=== PATIENT | female | born 1980 | race Native Hawaiian/Other Pacific Islander ===

== ENCOUNTER 2017-07-26 13:53 | Emergency (ER) | payer OTHER ==
[2017-07-26 14:35] VITALS: BMI 30.2
[2017-07-26] MEDS ORDERED: Lactated Ringer's 1,000 ML IV ONE (15:07)
[2017-07-26 15:19] LABS: URINE BILIRUBIN NEGATIVE (NEGATIVE); URINE BLOOD NEGATIVE (NEGATIVE); URINE CLARITY Clear (Clear); URINE COLOR YELLOW (YELLOW); URINE GLUCOSE (UA) NEGATIVE (Normal); URINE LEUKOCYTE ESTERASE NEGATIVE Leu/uL (Negative); URINE NITRATE NEGATIVE (NEGATIVE); URINE PROTEIN NEGATIVE (NEGATIVE); URINE UROBILINOGEN 0.2 mg/dL (0.2-1.0)
[2017-07-26 15:46] LABS: BASO # 0.1 K/uL (0.0-0.2); BASO % 0.6 % (0.0-2.0); EOS # 0.1 K/uL (0.0-0.7); EOS % 0.8 % (0.0-4.0); LYMPH # 1.7 K/uL (1.0-4.3); MEAN CORPUSCULAR HGB CONC 34.9 g/dL (33.0-37.0); MEAN PLATELET VOLUME 9.6 fL (7.2-11.7); MONO # 0.6 K/uL (0.0-0.8); MONO % 5.1 % (0.0-10.0); NEUT # 9.4 K/uL (1.8-7.0); NEUT % 79.5 % (50.0-75.0); RBC 3.81 Mil/uL (3.80-5.20); RED CELL DISTRIBUTION WIDTH 15.1 % (11.5-14.5); WHITE BLOOD COUNT 11.8 K/uL (4.8-10.8)
--- NOTE | 2017-07-26 16:12 | US ---
PROCEDURE: Ultrasound of the Kidneys HISTORY: r/o renal calculus, 24 weeks . COMPARISON: None available. TECHNIQUE: Sonogram of the kidneys. FINDINGS: RIGHT KIDNEY: Measures: 12.0 x 4.6 x 5.8 cm. Mild fullness of the renal collecting system. No obstructing calculus identified. LEFT KIDNEY: Measures: 11.2 x 4.8 x 5.3 cm. Mild fullness of the renal collecting system. No obstructing calculus identified. OTHER FINDINGS: Distended urinary bladder, otherwise grossly unremarkable. IMPRESSION: Mild fullness of bilateral renal collecting systems. No obstructing calculus identified.
[2017-07-26 16:14] LABS: ALB/GLOB RATIO 1.1 (1.0-2.1); ALBUMIN 3.5 g/dL (3.5-5.0); ALT/SGPT 23 U/L (9-52); AST/SGOT 25 U/L (14-36); BLOOD UREA NITROGEN 5 mg/dL (7-17); CALCIUM 9.2 mg/dl (8.6-10.4); GFR AFRICAN-AMERICAN > 60; GFR NON-AFRICAN AMERICAN > 60
[2017-07-26 21:07] VITALS: BP 132/87; PULSE 97; RESP 18; TEMP 97; O2SAT 97
--- NOTE | 2017-07-27 02:23 | OBHP ---
Datetime: 07/26/2017 16:55 IP Adm Impression: , intrauterine IP Chief Complaint Other: right and left flank pain IP Admit Plan: Discharge home Admit Comment, IP Provider: 37 y.o. , LMP 02/04/17, ALFREDO 11/12/17, EGA 24w 3d c/o LAP, pain scale 8/10 to 10/10, onset 1230 hours, while sitting at work. Intermittent; no particular timing. Feels lik e a stabbing pain. Not felt fetus moving as much this morning. (+) urinary frequency; denies dysuria . care: Dr. 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 H/O fibroid, 03/2017. Denies STIs PMH: denies PSH: 2007, cyst removed left ankle; benign NKDA Meds: PNV Soc Hx: denies tobacco, illicit drug or EtOH use. x 2 years. Works as business intelligence etl developer. Fam Hx: Mother alive 63 y.o. - DM. Father when patient 8 y.o. "accident" P.E.: as above. Mildly obese, flinches intermittently. awake, alert, oriented to time, person and place. Accompanied by Assessment: 37 y.o. P0, 24w 3d, colicky pain, aetiology unclear - R/O renal calculus. FHR detected and wnl for gestational age. Clinically stable. Plan: 1) U/A 2) CBC 3) Renal ultrasound 4) IVFs 5) Tylenol 975 mg p.o. x 1 dose 6) observe Addendum: - renal ultrasound: mildy dilated renal collecting system bilaterally; no obstsructing calculi, bi laterally - U/A negative Patient feels better, pain sacle now 10/02 Assessment: Musculoskeletal pain. Clinically stable. Plan: 1) Discharge home 2) Reviewed S/S PTL 3) Call Dr Marrufo for appointment Pelvic Type - PN: Adequate Extremities - PN: Normal Abdomen - PN: Normal Back - PN: Normal Breast - PN: Not Done Lungs - PN: Normal Heart - PN: Normal Thyroid - PN: Not Done Neurologic - PN: Normal HEENT - PN: Normal General - PN: Normal Presentation-Admit: Vertex FHR - Baseline A Provider: 140 Contraction Comments Provider: none Comments, ACOG Physical Exam: Back: no CVA tenderness Abdomen: Obese. Gravid. soft. Non tender in all quadrants. No suprapubic tenderness. (+) left flan k tenderness All other systems reviewed and are negative Gestation - Est Wks by US: 24w 3d EGA AdmitDate IP: 24.3 Vital Signs Provider: Reviewed; Within Normal Limits IP Chief Complaint: Other NICHD Accel Fetus A IP Provider: 15X15 FHR Category Provider Fetus A: Category I NICHD Decel Fetus A IP Provider: None Dilatation, Provider: 0 Effacement, Provider: 30 Station, Provider: high Genitourinary Exam: Normal DTRs - PN: Not Done
== END 2017-07-26 17:06 | disposition home or self-care (01) ==
LOC: C.EROB 13:53
DX: O26.892 Other specified pregnancy related conditions, second trimester (principal); R10.84 Generalized abdominal pain; Z3A.24 24 weeks gestation of pregnancy
CPT/HCPCS: 76770; 80053; 81001; 85025; 99283; J7120

== ENCOUNTER 2017-10-30 10:32 | Emergency (ER) | payer OTHER ==
[2017-10-30 10:32] VITALS: BMI 30.2
[2017-10-30 11:39] LABS: BASO # 0.1 K/uL (0.0-0.2); BASO % 0.8 % (0.0-2.0); EOS # 0.1 K/uL (0.0-0.7); EOS % 0.7 % (0.0-4.0); HEMOGLOBIN 11.2 g/dL (11.0-16.0); LYMPH % 17.7 % (20.0-40.0); MEAN CELL VOLUME 76.6 fL (81.0-99.0); MEAN CORPUSCULAR HEMOGLOBIN 26.3 pg (27.0-31.0); MEAN CORPUSCULAR HGB CONC 34.3 g/dL (33.0-37.0); MEAN PLATELET VOLUME 10.7 fL (7.2-11.7); MONO # 0.8 K/uL (0.0-0.8); MONO % 6.8 % (0.0-10.0); NEUT # 8.3 K/uL (1.8-7.0); NRBC % 0.1 % (0.0-2.0); RBC 4.28 Mil/uL (3.80-5.20); RED CELL DISTRIBUTION WIDTH 16.4 % (11.5-14.5); WHITE BLOOD COUNT 11.2 K/uL (4.8-10.8)
[2017-10-30 11:53] LABS: SQUAMOUS EPITHIAL < 1 /hpf (0-5); URINE BILIRUBIN NEGATIVE (NEGATIVE); URINE CLARITY Clear (Clear); URINE COLOR Straw (YELLOW); URINE GLUCOSE (UA) NORMAL (Normal); URINE LEUKOCYTE ESTERASE NEG Leu/uL (Negative); URINE PROTEIN NEGATIVE (NEGATIVE); URINE UROBILINOGEN NORMAL mg/dL (0.2-1.0)
[2017-10-30 11:55] LABS: ALBUMIN 3.7 g/dL (3.5-5.0); ALT/SGPT 16 U/L (9-52); AST/SGOT 26 U/L (14-36); BLOOD UREA NITROGEN 6 mg/dL (7-17); GFR AFRICAN-AMERICAN > 60; GFR NON-AFRICAN AMERICAN > 60; URINE BLOOD NEGATIVE (NEGATIVE)
--- NOTE | 2017-10-30 12:12 | OBHP ---
Datetime: 10/30/2017 12:01 IP Adm Impression: Term, intrauterine IP Admit Plan: Observation/Evaluation Admit Comment, IP Provider: 37 y.o. , LMP 02/04/17, ALFREDO 11/12/17 by lmp _ 6wk u presents to [facility] for eval of elev bp 130-135/98-100 noted in office visit today. care: Dr. Marrufo; no issues to date she denies VA disturbance, abd pain, n/v. 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 H/O fibroid, 03/2017. Denies STIs PMH: denies PSH: 2007, cyst removed left ankle; benign NKDA Meds: PNV Soc Hx: denies tobacco, illicit drug or EtOH use. x 2 years. I: 38.1wk Elev BP in ofcfice p: fms pih labs FHR - Baseline A Provider: 130-140 EGA AdmitDate IP: 38.1 Vital Signs Provider: Reviewed IP Chief Complaint: Signs/Symptoms Gestational HTN NICHD Variability Prov Fetus A: Moderate 6-25bpm NICHD Accel Fetus A IP Provider: 15X15 FHR Category Provider Fetus A: Category I NICHD Decel Fetus A IP Provider: None
[2017-10-30 17:29] VITALS: BP 108/69; PULSE 75; RESP 20; TEMP 97.5
== END 2017-10-30 12:35 | disposition home or self-care (01) ==
LOC: C.EROB 10:32
DX: O13.3 Gestational [pregnancy-induced] hypertension without significant proteinuria, third trimester (principal); Z3A.38 38 weeks gestation of pregnancy

== ENCOUNTER 2017-11-02 02:00 | Inpatient (IN) | payer OTHER ==
[2017-11-02 02:50] VITALS: BMI 33.0
[2017-11-02] MEDS ORDERED: Lactated Ringer's 1,000 ML IV SCH ×2 (03:00)
--- NOTE | 2017-11-02 03:17 | OBADHP ---
Datetime: 11/02/2017 02:56 Admit Comment, IP Provider: 37 y.o. , LMP 02/04/17, ALFREDO 11/12/17, EGA 38w 4d c/o Ctx, onset 0130 hours, pain scale 8/10. Decreased movement; last felt normal movement 1900 hours 5/10. (+) blo od stained mucoid vaginal discharge. care: Dr. Debra Marrufo; last visit 10/30/17 - sent to [facility] for evaluation of elevated BP. All labs normal; was to follow up today. No other issues. 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 diagnosed fibroids this , 02/2017; Denies h/o STIs or abnormal Pa p PMH: denies PSH: 2008, removal of cyst, right ankle. Meds: PNV NKDA Soc Hx: denies tobacco, illicit drug or EtOH use. x 2 1/2 years. Works as salesforce business analyst /IT Fam Hx: Mother alive 65 - DM. Father 1989, S/P accident. No known fam h/o cancer P.E.: as above. WD in pain with Ctx. Awake, alert, oriented to time, person and place. Pleasant an d cooperative. Acco panied by Assessment: 37 y.o. P0, 38w 4d, early labor. GBS (-). Category 1 tracing. Patient desires pain re lief. BP normal. Clinically stable. Plan: 1) Admit 2) NPO 3) Admission labs 4) Continuous EFM 5) Epidural 6) Conservative management 7) Anticipate vaginal delivery - as per, and discussed with, Dr. Marrufo Pelvic Type - PN: Adequate Extremities - PN: Normal Abdomen - PN: Normal Back - PN: Normal Breast - PN: Normal Lungs - PN: Normal Heart - PN: Normal Thyroid - PN: Not Done Neurologic - PN: Normal HEENT - PN: Normal General - PN: Normal Weight - Estimated: 3405 Presentation-Admit: Vertex FHR - Baseline A Provider: 130 Contraction Comments Provider: 3 minutes Comments, ACOG Physical Exam: Abdomen: Gravid. firm with contractions; otherwise, non tender. Fundal height = 38cm Extremities: no cyanosis, edema All other systems reviewed and are negative Gestation - Est Wks by US: 38w 4d IP Hx Assessment: The History has been Reviewed and is Current Vital Signs Provider: Reviewed IP Chief Complaint: Uterine contractions NICHD Variability Prov Fetus A: Moderate 6-25bpm NICHD Accel Fetus A IP Provider: 15X15 FHR Category Provider Fetus A: Category II NICHD Decel Fetus A IP Provider: None Dilatation, Provider: 4 Effacement, Provider: 100 Station, Provider: -1 Genitourinary Exam: Normal DTRs - PN: Normal EGA AdmitDate IP: 38.4 IP Adm Impression: Term, intrauterine ; Active labor; Intact Membranes IP Admit Plan: Admit to unit; Initiate labor protocol Datetime: 07/26/2017 16:55 IP Chief Complaint Other: right and left flank pain
[2017-11-02 03:57] LABS: BASO # 0.1 K/uL (0.0-0.2); BASO % 0.5 % (0.0-2.0); EOS # 0.1 K/uL (0.0-0.7); EOS % 0.4 % (0.0-4.0); LYMPH # 1.9 K/uL (1.0-4.3); LYMPH % 15.3 % (20.0-40.0); MEAN CELL VOLUME 76.8 fL (81.0-99.0); MEAN CORPUSCULAR HEMOGLOBIN 25.9 pg (27.0-31.0); MEAN CORPUSCULAR HGB CONC 33.7 g/dL (33.0-37.0); MEAN PLATELET VOLUME 10.3 fL (7.2-11.7); MONO # 0.6 K/uL (0.0-0.8); MONO % 4.5 % (0.0-10.0); NEUT # 10.1 K/uL (1.8-7.0); NEUT % 79.3 % (50.0-75.0); RBC 4.26 Mil/uL (3.80-5.20); RED CELL DISTRIBUTION WIDTH 16.6 % (11.5-14.5); WHITE BLOOD COUNT 12.7 K/uL (4.8-10.8)
[2017-11-02 04:08] LABS: ALB/GLOB RATIO 1.1 (1.0-2.1); ALBUMIN 3.5 g/dL (3.5-5.0); ALT/SGPT < 6 U/L (9-52); AST/SGOT 19 U/L (14-36); BLOOD UREA NITROGEN 6 mg/dL (7-17); CALCIUM 8.6 mg/dl (8.6-10.4); GFR AFRICAN-AMERICAN > 60; GFR NON-AFRICAN AMERICAN > 60
[2017-11-02] MEDS ORDERED: Fentanyl/Bupivacaine HCl 250 ML EPI ONE (04:31)
[2017-11-02 04:36] LABS: GRANULAR CAST 3 /lpf (0-1); SQUAMOUS EPITHIAL 5 /hpf (0-5); URINE BACTERIA RARE (<OCC); URINE BILIRUBIN NEGATIVE (NEGATIVE); URINE BLOOD 2+ (NEGATIVE); URINE CLARITY Hazy (Clear); URINE COLOR Yellow (YELLOW); URINE GLUCOSE (UA) NORMAL (Normal); URINE LEUKOCYTE ESTERASE TRACE Leu/uL (Negative); URINE PROTEIN NEGATIVE (NEGATIVE); URINE UROBILINOGEN NORMAL mg/dL (0.2-1.0)
[2017-11-02 14:09] LABS: BASO % 0.2 % (0.0-2.0); HEMOGLOBIN 10.2 g/dL (11.0-16.0); LYMPH # 1.1 K/uL (1.0-4.3); LYMPH % 6.5 % (20.0-40.0); MEAN CELL VOLUME 76.8 fL (81.0-99.0); MEAN CORPUSCULAR HEMOGLOBIN 25.9 pg (27.0-31.0); MEAN CORPUSCULAR HGB CONC 33.8 g/dL (33.0-37.0); MEAN PLATELET VOLUME 10.7 fL (7.2-11.7); MONO # 0.8 K/uL (0.0-0.8); MONO % 5.1 % (0.0-10.0); NEUT # 14.7 K/uL (1.8-7.0); NEUT % 88.2 % (50.0-75.0); PLATELET COUNT 190 K/uL (130-400); RBC 3.93 Mil/uL (3.80-5.20); RED CELL DISTRIBUTION WIDTH 16.9 % (11.5-14.5); WHITE BLOOD COUNT 16.7 K/uL (4.8-10.8)
[2017-11-02 14:20] LABS: SQUAMOUS EPITHIAL 1 /hpf (0-5); URINE BILIRUBIN NEGATIVE (NEGATIVE); URINE BLOOD 3+ (NEGATIVE); URINE CLARITY Hazy (Clear); URINE COLOR Red (YELLOW); URINE GLUCOSE (UA) NORMAL (Normal); URINE PROTEIN 2+ mg/dL (NEGATIVE); URINE UROBILINOGEN NORMAL mg/dL (0.2-1.0)
[2017-11-02 14:24] LABS: URINE LEUKOCYTE ESTERASE 2+ Leu/uL (Negative)
[2017-11-02 14:39] LABS: ALT/SGPT 10 U/L (9-52); AST/SGOT 24 U/L (14-36); BLOOD UREA NITROGEN 7 mg/dL (7-17); CALCIUM 8.6 mg/dl (8.6-10.4); GFR AFRICAN-AMERICAN > 60; GFR NON-AFRICAN AMERICAN > 60
[2017-11-02] MEDS ORDERED: Oxytocin 20 units in LR 2,000 ML IV ONE (14:39)
[2017-11-02] MEDS ORDERED: Lidocaine 2% MPF (5 ml) Inj ONE (14:41)
[2017-11-02 15:04] LABS: ANISOCYTOSIS SLIGHT; BANDS 3 % (0-2); HYPOCHROMIC SLIGHT; LYMPHOCYTE 8 % (20-40); MONOCYTE 1 % (0-10); NEUTROPHIL 88 % (50-75); PLATELET ESTIMATE NORMAL (NORMAL); TOTAL CELLS COUNTED 100
--- NOTE | 2017-11-02 15:06 | OBPN ---
Datetime: 11/02/2017 14:57 IP Progress Impression: Normal progression of labor IP Progress Plan: Continue present management Membranes, Provider: Ruptured FHR - Baseline A Provider: 150 Gestation - Est Wks by US: 38.4 Presentation-Admit: Vertex IP Progress Note Comment: pt seen and examiend c/o pressure, dneis vb, +FM pt proertrs had small leakign earlier this moirng ,unsure if large gush denies heachea, blurry vision, ruq/epigastira pin VS reviwed VE as above a/p @ 38.4 wks GA in active labr -unknow rom -gbs negative -s/p epidrua -cont current manmgent Vital Signs Provider: Reviewed NICHD Variability Prov Fetus A: Moderate 6-25bpm Dilatation, Provider: 10 Effacement, Provider: 100 Station, Provider: 0 NICHD Decel Fetus A IP Provider: None
[2017-11-02] MEDS ORDERED: Oxytocin 30 UNIT 30 UNITS/500 ML BAG IV SCH (15:45)
[2017-11-02] MEDS ORDERED: Benzocaine/Menthol 20%-0.5% Topical Spray (60 ml) TOP PRN (17:23)
[2017-11-02] MEDS ORDERED: Oxycodone/Acetaminophen 5/325 mg Tab PO PRN ×2 (17:23)
--- NOTE | 2017-11-02 17:28 | OBDS ---
DELIVERY PERSONNEL Delivery Doctor: Peter Marrufo MD Vacuum Frame Operator: Yadi Berrios RN Anesthesiologist: Dr Burks MATERNAL INFORMATION Delivery Anesthesia: Epidural Medications in Delivery: pitocin Provider Comments: pt was fully dilated and pushing, Verbal consent for rig tmediolateral episootmy made, aturmati, spontnaeous devery of head in OA possiton, no nuchal cord noted. atrumatic, spontaneo us delivey rof naterior follwoed yb poserioe shoulder followed by delivery of the body. Meconium, ped iatriatin called. Cord blood adn cord gases collected and sent x 2. Speontaneous dlievye of intact pl acenta with membranes. Fundu fimr, seocnd degree with right mediolater repaired after lidoaicne 1% wi th epeinephr and repaired iwth 2-0 and 3-0 chormic sutuer. Goo dhemostais, no complication live femlaes ifnant agpars 9,9 weigh to f7lbs 9 ounces ebl 400 ml no ocmplicaoitn LABOR SUMMARY EDC: 11/12/2017 00:00 No. Babies in Womb: 1 Attempted: No Labor Anesthesia: Epidural LABOR INFORMATION Onset of Labor: 11/02/2017 01:30 Complete Dilatation: 11/02/2017 15:35 Oxytocin: Augmentation Group B Beta Strep: Negative Steroids Given: None Reason Steroids Not Administered: Not Applicable MEMBRANES Membranes Rupture Method: Artificial (Annotations: AROM forebag, Dr Marrufo noted some SROM) Rupture of Membranes: 11/02/2017 14:49 Length of Rupture (hrs): 2.00 Amniotic Fluid Color: Light Meconium Amniotic Fluid Amount: Small Amniotic Fluid Odor: None STAGES OF LABOR Stage 1 hrs: 14 Stage 1 min: 5 Stage 2 hrs: 1 Stage 2 min: 14 Stage 3 hrs: 0 Stage 3 min: 3 Total Time in Labor hrs: 15 Total Time in Labor min: 22 BABY A INFORMATION Delivery Date/Time: 11/02/2017 16:49 Method of Delivery: Vaginal Born in Route : No : N/A Forceps: N/A Vacuum Extraction: N/A Shoulder Dystocia : No SHOULDER DYSTOCIA BABY A Infant Delivery Date/Time: 11/02/2017 16:49 PRESENTATION/POSITION BABY A Presentation: Cephalic Cephalic Presentation: Vertex Vertex Position: OA Breech Presentation: N/A PLACENTA INFORMATION BABY A Placenta Delivery Time : 11/02/2017 16:52 Placenta Method of Delivery: Expressed Placenta Status: Delivered SCORES BABY A Heart Rate 1 min: >100 bpm Resp Effort 1 min: Good Cry Reflex Irritability 1 min: Cough or Sneeze or Pulls Away Muscle Tone 1 min: Active Motion Color 1 min: Body [place], Extremities Blue Resuscitation Effort 1 min: Tactile Stimulation SCORE 1 MIN: 9 Heart Rate 5 min: >100 bpm Resp Effort 5 min: Good Cry Reflex Irritability 5 min: Cough or Sneeze or Pulls Away Muscle Tone 5 min: Active Motion Color 5 min: Body [place], Extremities Blue Resuscitation Effort 5 min: N/A SCORE 5 MIN: 9 INFORMATION BABY A Gestational Age at Delivery: 38.4 Gestational Status: Term Outcome : Liveborn Condition : Stable Infant Sex: Female IDENTIFICATION/MEDS BABY A ID Band Number: [id number] ID Band Location: Left Leg; Left Arm Sensor Applied: Yes Sensor Number: [id number] Sensor Location : Cord Clamp Vitamin K Given : Not Given Erythromycin Given: Not Given WEIGHT/LENGTH BABY A Infant Birthweight (gms): 3435 Infant Weight (lb): 7 Weight (oz): 9 Length Inches: 19.50 Length cms: 49.5 CORD INFORMATION BABY A No. Cord Vessels: 3 Nuchal Cord : N/A Cord Blood Taken: Yes Infant Suction: Mouth; Nose; Pharynx ASSESSMENT BABY A Complications: None Physical Findings at Delivery: Molding of the Head Physical Findings Other: T=98.6 RR= 60, HR= 166 O2sat = 94 % Respirations: Appears Normal Fiber Optic Assembly Worker/ALS Called : No Infant Care By: Lrorie GARCIA/ Dr Ennis Transferred To: Remains with Mother
[2017-11-02] MEDS: ceFAZolin 1 gm FROZEN Premix 1 GM/50 ML ML IVPB SCH (18:25)
[2017-11-03] MEDS: ceFAZolin 1 gm FROZEN Premix 1 GM/50 ML ML IVPB SCH ×2 (02:25→09:59)
[2017-11-03 08:49] LABS: BASO % 0.1 % (0.0-2.0); EOS % 0.1 % (0.0-4.0); HEMOGLOBIN 8.6 g/dL (11.0-16.0); LYMPH # 1.5 K/uL (1.0-4.3); MEAN CELL VOLUME 76.8 fL (81.0-99.0); MEAN CORPUSCULAR HEMOGLOBIN 25.8 pg (27.0-31.0); MEAN CORPUSCULAR HGB CONC 33.6 g/dL (33.0-37.0); MEAN PLATELET VOLUME 10.3 fL (7.2-11.7); MONO # 0.8 K/uL (0.0-0.8); MONO % 4.6 % (0.0-10.0); NEUT # 14.6 K/uL (1.8-7.0); NEUT % 86.2 % (50.0-75.0); PLATELET COUNT 177 K/uL (130-400); RBC 3.35 Mil/uL (3.80-5.20); RED CELL DISTRIBUTION WIDTH 16.9 % (11.5-14.5)
[2017-11-03] MEDS: Multiple Vitamins Tab PO SCH (10:03)
--- NOTE | 2017-11-03 10:58 | OBPPN ---
Datetime: 11/03/2017 09:58 PP Pain Prov: Within normal limits PP Nausea Prov: Denies PP Flatus Prov: Yes PP BM Prov: No PP Breasts Prov: Normal PP Heart Prov: Normal PP Lungs Prov: Normal PP Abdomen/Uterus Prov: Normal PP Lochia Prov: Normal PP Vulva/Perineum Prov: Normal PP CVA Tenderness Prov: Normal PP Extremities Prov: Normal PP C/S Incision Prov: Not Applicable PP Progress Prov: Normal PP Comments Phys Exam Prov: Breasts: no cracked nipples Abdomen: (+)BS. Soft. Non distended. Fundus firm, mobile, non tender, 1 FB below umbilicus. Modera te lochia rubra. Extremities: no calf tenderness All other systems reviewed and are negative PP Impression Prov: Normal progression PP Plan Prov: Continue present management PP Progress Note Prov: Asked by Dr. Marrufo to evaluate patient Patient received in bed, room 451; [id number]. Breast- and bottlefeeding. Denies dizziness, lig htheadedness, chest pain or shortness of reath. Reports mild swelling to feet. Ambulating to bathroo m P.E.: as above. WD in NAD. Awake, alert, oriented to time, person and place. Pleasant and coopera tive - PPD#1, 17>8.6/25.7>177. Rh (+) Assessment: PPD#1, 37 y.o. P1, S/P . On Ancef for prolonged rupture of membranes. Elevated WBC noted; stable this morning. Patient remains afebrile. Decrease H/H noted; asymptomatic and hemodynami idalia stable. Patient is clinically stable. Plan: 1) Complete ancef x 3 doses 2) Encourage ambulation 3) Start iron supplementation 4) Follow WBC 5) Routine post care Vital Signs Provider PP: Reviewed
[2017-11-03 11:35] LABS: BANDS 2 % (0-2); LYMPHOCYTE 7 % (20-40); MONOCYTE 2 % (0-10); NEUTROPHIL 89 % (50-75); TOTAL CELLS COUNTED 100
[2017-11-03 11:36] LABS: ANISOCYTOSIS SLIGHT; PLATELET ESTIMATE NORMAL (NORMAL)
[2017-11-03 11:37] LABS: HYPOCHROMIC SLIGHT; MICROCYTOSIS SLIGHT; OVALOCYTES SLIGHT; POIKILOCYTOSIS SLIGHT
[2017-11-04 07:54] LABS: BASO % 0.2 % (0.0-2.0); EOS # 0.1 K/uL (0.0-0.7); EOS % 0.8 % (0.0-4.0); HEMOGLOBIN 8.6 g/dL (11.0-16.0); LYMPH # 1.9 K/uL (1.0-4.3); LYMPH % 14.7 % (20.0-40.0); MEAN CELL VOLUME 76.7 fL (81.0-99.0); MEAN CORPUSCULAR HEMOGLOBIN 25.9 pg (27.0-31.0); MEAN CORPUSCULAR HGB CONC 33.8 g/dL (33.0-37.0); MEAN PLATELET VOLUME 9.9 fL (7.2-11.7); MONO # 0.6 K/uL (0.0-0.8); MONO % 4.8 % (0.0-10.0); NEUT # 10.2 K/uL (1.8-7.0); NEUT % 79.5 % (50.0-75.0); RBC 3.31 Mil/uL (3.80-5.20); RED CELL DISTRIBUTION WIDTH 17.1 % (11.5-14.5); WHITE BLOOD COUNT 12.8 K/uL (4.8-10.8)
--- NOTE | 2017-11-04 08:13 | CP.PCM.DIS ---
Provider - Provider Date of Admission: 11/02/17 02:54 Attending physician: Debra Marrufo MD Time Spent in preparation of Discharge (in minutes): 20 Diagnosis - Discharge Diagnosis (1) Normal vaginal delivery Status: Acute Priority: Low Onset Date: ~11/02/17 Hospital Course - Lab Results Lab Results: Most Recent Lab Values WBC 12.8 K/uL (4.8-10.8) H 11/04/17 07:40 RBC 3.31 Mil/uL (3.80-5.20) L 11/04/17 07:40 Hgb 8.6 g/dL (11.0-16.0) L 11/04/17 07:40 Hct 25.4 % (34.0-47.0) L 11/04/17 07:40 MCV 76.7 fL (81.0-99.0) L 11/04/17 07:40 MCH 25.9 pg (27.0-31.0) L 11/04/17 07:40 MCHC 33.8 g/dL (33.0-37.0) 11/04/17 07:40 RDW 17.1 % (11.5-14.5) H 11/04/17 07:40 Plt Count 179 K/uL (130-400) 11/04/17 07:40 MPV 9.9 fL (7.2-11.7) 11/04/17 07:40 Neut % (Auto) 79.5 % (50.0-75.0) H 11/04/17 07:40 Lymph % (Auto) 14.7 % (20.0-40.0) L 11/04/17 07:40 [place] % (Auto) 4.8 % (0.0-10.0) 11/04/17 07:40 Eos % (Auto) 0.8 % (0.0-4.0) 11/04/17 07:40 Baso % (Auto) 0.2 % (0.0-2.0) 11/04/17 07:40 Neut # (Auto) 10.2 K/uL (1.8-7.0) H 11/04/17 07:40 Lymph # (Auto) 1.9 K/uL (1.0-4.3) 11/04/17 07:40 [place] # (Auto) 0.6 K/uL (0.0-0.8) 11/04/17 07:40 Eos # (Auto) 0.1 K/uL (0.0-0.7) 11/04/17 07:40 Baso # (Auto) 0.0 K/uL (0.0-0.2) 11/04/17 07:40 Neutrophils % (Manual) 89 % (50-75) H 11/03/17 08:44 Band Neutrophils % 2 % (0-2) 11/03/17 08:44 Lymphocytes % (Manual) 7 % (20-40) L 11/03/17 08:44 Monocytes % (Manual) 2 % (0-10) 11/03/17 08:44 Platelet Estimate Normal (NORMAL) 11/03/17 08:44 Hypochromasia (manual) Slight 11/03/17 08:44 Poikilocytosis (manual Slight 11/03/17 08:44 Anisocytosis (manual) Slight 11/03/17 08:44 Microcytosis (manual) Slight 11/03/17 08:44 Ovalocytes Slight 11/03/17 08:44 Sodium 138 mmol/L (132-148) 11/02/17 13:58 Potassium 3.8 mmol/L (3.6-5.2) 11/02/17 13:58 Chloride 105 mmol/L (98-107) 11/02/17 13:58 Carbon Dioxide 20 mmol/L (22-30) L 11/02/17 13:58 Anion Gap 17 (10-20) 11/02/17 13:58 BUN 7 mg/dL (7-17) 11/02/17 13:58 Creatinine 0.6 mg/dL (0.7-1.2) L 11/02/17 13:58 Est GFR ( Amer) > 60 11/02/17 13:58 Est GFR (Non-Af Amer) > 60 11/02/17 13:58 Random Glucose 78 mg/dL (65-105) 11/02/17 13:58 Calcium 8.6 mg/dl (8.6-10.4) 11/02/17 13:58 Total Bilirubin 0.8 mg/dL (0.2-1.3) 11/02/17 13:58 AST 24 U/L (14-36) 11/02/17 13:58 ALT 10 U/L (9-52) 11/02/17 13:58 Alkaline Phosphatase 140 U/L (38-126) H D 11/02/17 13:58 Lactate Dehydrogenase 309 U/L (313-618) L 11/02/17 13:58 Total Protein 6.1 g/dL (6.3-8.3) L 11/02/17 13:58 Albumin 3.0 g/dL (3.5-5.0) L 11/02/17 13:58 Globulin 3.1 gm/dL (2.2-3.9) 11/02/17 13:58 Albumin/Globulin Ratio 1.0 (1.0-2.1) 11/02/17 13:58 Urine Color Red (YELLOW) 11/02/17 13:58 Urine Clarity Hazy (Clear) 11/02/17 13:58 Urine pH 5.0 (5.0-8.0) 11/02/17 13:58 Ur Specific [place] 1.013 (1.003-1.030) 11/02/17 13:58 Urine Protein 2+ mg/dL (NEGATIVE) H 11/02/17 13:58 Urine Glucose (UA) Normal mg/dL (Normal) 11/02/17 13:58 Urine Ketones 1+ mg/dL (NEGATIVE) H 11/02/17 13:58 Urine Blood 3+ (NEGATIVE) H 11/02/17 13:58 Urine Nitrate Negative (NEGATIVE) 11/02/17 13:58 Urine Bilirubin Negative (NEGATIVE) 11/02/17 13:58 Urine Urobilinogen Normal mg/dL (0.2-1.0) 11/02/17 13:58 Ur Leukocyte Esterase 2+ Shanda/uL (Negative) H 11/02/17 13:58 Urine WBC (Auto) 67 /hpf (0-5) H 11/02/17 13:58 Urine RBC (Auto) 3124 /hpf (0-3) H 11/02/17 13:58 Ur Squamous Epith Cells 1 /hpf (0-5) 11/02/17 13:58 Urine Bacteria Rare (<OCC) 11/02/17 04:27 Granular Casts (Auto) 3 /lpf (0-1) 11/02/17 04:27 Blood Type O POSITIVE 11/02/17 03:53 Antibody Screen Negative 11/02/17 03:53 - Hospital Course Hospital Course: PTs vaginal delivery complicated by elevated WBC 17.0. PT given ANCEF x 3. On the day of discharge the WBC was 12.8 Discharge Exam - Head Exam Head Exam: ATRAUMATIC, NORMAL INSPECTION - Eye Exam Pupil Exam: NORMAL ACCOMODATION - Respiratory Exam Respiratory Exam: NORMAL BREATHING PATTERN - GI/Abdominal Exam GI & Abdominal Exam: Unremarkable (Fundus firm. ) - Extremities Exam Extremities exam: normal inspection - Back Exam Back exam: NORMAL INSPECTION Discharge Plan - Follow Up Plan Condition: GOOD Disposition: HOME/ ROUTINE Instructions: Vaginal Delivery
[2017-11-04] MEDS ORDERED: Measles, Mumps, and Rubella 0.5 ML VIAL SC ONE (10:14)
[2017-11-04] MEDS: Multiple Vitamins Tab PO SCH (11:03)
[2017-11-04] MEDS: Prenatal Multivit/Folic Acid/Iron Tab PO SCH (11:03)
--- NOTE | 2017-11-04 23:22 | OBPPN ---
Datetime: 11/04/2017 23:19 PP Pain Prov: Within normal limits PP Nausea Prov: Denies PP Flatus Prov: Yes PP BM Prov: No PP Breasts Prov: Normal PP Heart Prov: Normal PP Lungs Prov: Normal PP Abdomen/Uterus Prov: Abnormal PP Lochia Prov: Normal PP Vulva/Perineum Prov: Normal PP CVA Tenderness Prov: Normal PP Extremities Prov: Normal PP C/S Incision Prov: Not Applicable PP Progress Prov: Normal PP Comments Phys Exam Prov: abd TTP over lower incision, no marty, no reoudn tendnerr, no rigidty Fundu: Firm, below umbics VE: moderate lochia, non foul smelling PP Impression Prov: Pain PP Progress Note Prov: Pt seen and examiend this mornign and was feeling well and then after started to have severe cramping pain with vomitign x 1. pt preorts not able to keep po intake down, robbie fev er, hcills, cp, osb, left pain, lighthenadd, but feelng tired VSS PE see above A?P s/p NSV DPPD #2 with vomiting, pain -zofran prn -po challnge -pain mangment -reevlate Vital Signs Provider PP: Reviewed; Within Normal Limits
[2017-11-05 07:45] LABS: BASO % 0.3 % (0.0-2.0); EOS # 0.1 K/uL (0.0-0.7); EOS % 1.1 % (0.0-4.0); HEMOGLOBIN 8.8 g/dL (11.0-16.0); LYMPH # 1.5 K/uL (1.0-4.3); LYMPH % 14.6 % (20.0-40.0); MEAN CELL VOLUME 76.9 fL (81.0-99.0); MEAN CORPUSCULAR HEMOGLOBIN 26.5 pg (27.0-31.0); MEAN CORPUSCULAR HGB CONC 34.4 g/dL (33.0-37.0); MEAN PLATELET VOLUME 10.1 fL (7.2-11.7); MONO # 0.4 K/uL (0.0-0.8); MONO % 4.3 % (0.0-10.0); NEUT # 8.3 K/uL (1.8-7.0); NEUT % 79.7 % (50.0-75.0); RBC 3.32 Mil/uL (3.80-5.20); RED CELL DISTRIBUTION WIDTH 16.8 % (11.5-14.5); WHITE BLOOD COUNT 10.4 K/uL (4.8-10.8)
[2017-11-05 08:21] VITALS: BP 126/82
[2017-11-05 08:38] LABS: ALT/SGPT 14 U/L (9-52); AST/SGOT 29 U/L (14-36); BLOOD UREA NITROGEN 8 mg/dL (7-17); CALCIUM 8.7 mg/dl (8.6-10.4); GFR AFRICAN-AMERICAN > 60; GFR NON-AFRICAN AMERICAN > 60
[2017-11-05] MEDS: Prenatal Multivit/Folic Acid/Iron Tab PO SCH (10:38)
[2017-11-05] MEDS ORDERED: Measles, Mumps, and Rubella 0.5 ML VIAL SC ONE (11:00)
--- NOTE | 2017-11-05 12:03 | OBPN ---
Datetime: 11/02/2017 13:08 IP Progress Plan Other: expectant vag delivery IP Progress Impression: Normal progression of labor IP Progress Note Comment: s; comfortable w/ epidural. denies rectal pressure. denies h/a, scotomata, ruq pain, n/v, visual disturbances o: 7.5cm/90/-1 fhr: 140s minimal variab +accels to 160 w/ scalp stim; 140s w/ early decels I38.4wks elev bps p: reviewed above w/ dr tomlin. pih labs dr tomlin plans to be here within an hr. Vital Signs Provider: Reviewed Vital Signs Provider Details: 120-130/80-90 Datetime: 11/02/2017 02:56 Contraction Comments Provider: 3 minutes FHR - Baseline A Provider: 130 Gestation - Est Wks by US: 38w 4d Weight - Estimated: 3405 Presentation-Admit: Vertex NICHD Accel Fetus A IP Provider: 15X15 FHR Category Provider Fetus A: Category II NICHD Variability Prov Fetus A: Moderate 6-25bpm Dilatation, Provider: 4 Effacement, Provider: 100 Station, Provider: -1 NICHD Decel Fetus A IP Provider: None
--- NOTE | 2017-11-05 12:43 | OBDCSUM ---
Datetime: 11/05/2017 11:05 Discharged to, Provider: Home Follow up at, Provider: Dr Mily Marrufo Disch Instr Activity: Normal activity; May Shower Disch Instr Diet: Regular Discharge Diet restrict Prov: none Discharge Instructions, Provider: Routine instructions given Discharge Diagnosis, Provider: Term Delivered Discharge Time: 11/05/2017 11:12 Follow up in weeks, Provider: 6 wks Disch Referrals: None Contraception discussed, Prov: Yes Disch Activity Restrictions: No exercising; No lifting; No sexual activity; Nothing in vagina - Inte rcourse, tampons, douche Discharge Comment, Provider: Please discharge patient home Please follow up with Dr. Peter Marrufo in 6 weeeks Please continue hydration and breast feeding Please avoid heavy excercising, lifting No sexual intercourse or nothing per vagina for 6 weeks Please take OTC motrin for pain control Please take ferrous gluconate 324mg PO TID Please use benzocaine/menthol aerosol/dermoplast as needed for vaginal pain Pleaes take docusate 100mg PO BID Please take care Discharge Diagnosis Prov Other: Diagnosis: at 38 weeks and 4 days Contraception after Delivery: Undecided
--- NOTE | 2017-11-05 12:43 | OBPPN ---
Datetime: 11/05/2017 11:40 PP Pain Prov: Within normal limits PP Nausea Prov: Denies PP Flatus Prov: Yes PP BM Prov: Yes PP Heart Prov: Normal PP Lungs Prov: Normal PP Abdomen/Uterus Prov: Normal PP Extremities Prov: Normal PP Comments Phys Exam Prov: Abdomen: Soft, non-tender, fundus is firm and below the umbilicus PP Progress Note Prov: Patient was seen and examined at bedside. Patient reports that she is doing w ell with no acute issues. Patient is tolerating diet and ambulating. Patient denies fever, chills, na usea, vomiting, abdominal pain, dysuria. Patient reports to mild lochia, passing flatus and BM. Patie nt is bottle feeding and breast feeding. Physical Examination: Gen: NAD, AAOX3 Cardio: RRR, +s1, +s2, no murmur Pulm: CTA Abdomen: Soft, non-tender, fundus is firm and below the umbilicus Perineum: Intact, mild swelling Ext: No cyanosis, no edema and no cyanosis VS: Temp: 98.6, BP: 126/82, HR: 93, RR: 18 Labs: 16.7>10.2/30.1<190, 17.0>8.6/25.7<177, 12.8>8.6/25.4<179, 10.4>8.8/25.5<197 O+, Rubella non-immue A/P: Patient is a 37 year old at 38 weeks and 4days, now PPD #3 1. Afebrile, Stable 2. Pain well-controlled 3. Continue hydration and breast feeding 4. girl cleared by pediatrics 5. MMR vaccine given prior to discharge due rubella non-immune 6. Discharge patient home: -Please continue hydration and breast feeding -Please avoid heavy excercising, lifting -No sexual intercourse or nothing per vagina for 6 weeks -Please take OTC motrin for pain control -Please take ferrous gluconate 324mg PO TID -Please use benzocaine/menthol aerosol/dermoplast as needed for vaginal pain -Pleaes take docusate 100mg PO BID -Please take care agree iwth above pt seen and examined stable for dc tolerated diet pain contorl rto 6 weeks Vital Signs Provider PP: Reviewed
[2017-11-05 20:10] VITALS: PULSE 87; RESP 20; TEMP 97; O2SAT 98
== END 2017-11-05 14:20 | disposition home or self-care (01) | DRG 775 ==
LOC: C.EROB 02:00 → C.4D 02:54 → C.4M 20:15
PROVIDERS: ADMIT Obstetrics & Gynecology; ATTEND Obstetrics & Gynecology
PROC: 10E0XZZ Delivery of Products of Conception, External Approach (ICD-10-PCS; principal; 2017-11-02)
PROC: 0W8NXZZ Division of Female Perineum, External Approach (ICD-10-PCS; 2017-11-02)
DX: O36.8130 Decreased fetal movements, third trimester, not applicable or unspecified (principal); O77.0 Labor and delivery complicated by meconium in amniotic fluid; D72.829 Elevated white blood cell count, unspecified; Z3A.38 38 weeks gestation of pregnancy; Z23 Encounter for immunization; Z37.0 Single live birth